=== PATIENT | female | born 1995 | race Caucasian/White ===

== ENCOUNTER 2021-01-22 12:22 | Emergency (ER) | payer SELFPAY ==
[2021-01-22] MEDS ORDERED: diphenhydrAMINE 50 MG/ML SDV IVPUSH ONE (12:37)
[2021-01-22] MEDS ORDERED: Dexamethasone 10 MG/ML SDV IVPUSH ONE (12:37)
[2021-01-22 13:38] LABS: BLOOD UREA NITROGEN,BUN 10 mg/dL (7.0-18.0); CARBON DIOXIDE,CO2 26.7 mmol/L (21.0-32.0); CHLORIDE,CL 103 mmol/L (98-107); GLUCOSE RANDOM 102 mg/dL (74-106); POTASSIUM,K 3.8 mmol/L (3.5-5.1); SODIUM,NA 139 mmol/L (136-145)
--- NOTE | 2021-01-22 13:50 | CT ---
Indication: Sensation of airway impediment Technique: Volumetric multidetector CT images of the cervical soft tissues were obtained after the administration of low osmolar intravenous contrast. 75 cc Isovue 370 low osmolar intravenous contrast Comparison: None available. Findings: The partially visualized brain parenchyma is normal in attenuation without evidence of abnormal enhancement. The orbits and their contents are within normal limits. The paranasal sinuses are clear. The mastoid air cells are clear. The nasopharynx is unremarkable. The fossae of Rosenmuller are clear. The oropharynx is unremarkable. There is demonstration of a moderately bulky lingual tonsil. The deep spaces of the neck are otherwise preserved. The vocal folds are nonthickened with symmetrical appearance. There is a mildly bulky right thyroid lobe. The left thyroid gland is grossly unremarkable. There are reactive appearing cervical lymph nodes seen in the bilateral II cervical chains. The jugular veins are patent. The carotid arteries demonstrate no significant atherosclerotic narrowing. The lung apices are clear. The cervical vertebral body heights are grossly maintained with mild anterolisthesis of C4 on C5. There is mild facet arthrosis. Impression: Demonstration of moderate prominence of the lingual tonsil and likely reactive lymph nodes of the bilateral II cervical chains which may represent reactive lymphoproliferative changes in the setting of upper respiratory infection or pharyngitis changes. Otherwise, no evidence of mass or fluid collection. The airway is grossly patent. Please note that all CT scans at this facility use dose modulation, iterative reconstruction, and/or weight-based dosing when appropriate to reduce radiation dose to as low as reasonably achievable. Dictated by Bladimir Jimenez MD @ 01/22/2021 1:48:48 PM (Electronically Signed)
--- NOTE | 2021-01-22 13:57 | EDM.PDOC ---
ED HPI GENERAL MEDICAL PROBLEM - General Chief Complaint: General Stated Complaint: PT STATES HER THROAT IS CLOSING UP Time Seen by Provider: 01/22/21 12:25 Source of Information: Reports: Patient History Limitations: Reports: No Limitations - History of Present Illness INITIAL COMMENTS - FREE TEXT/NARRATIVE: HISTORY AND PHYSICAL: History of present illness: Patient is a 25-year-old female who presents emergency room today with concern of sensation like she cannot swallow as if there is swelling/impeding of her airway in the middle of her throat. Patient states that she does have a history of angioedema but states that this does not feel typical of her angioedema. Patient states that she did have a recent dental infection that she was placed on clindamycin for but states that the dental infection has nearly completely resolved and states that she has an appointment in a week and a half with a dentist for further addressing of her tooth. Patient states this was on the upper right tooth but states that this is nearly gone now. Patient states that she began developing the sensation of something stuck in the middle of her throat/impeding on her airway yesterday. Patient states that she typically receives Decadron for her history of angioedema patient states that she did take Benadryl today but states that it did not help her symptoms. Patient states that this feels different than her typical angioedema and like she has a "infection of her throat ". Denies any other health history or any other associated symptoms. Patient denies fever, chills, chest pain, shortness of breath, or cough. Denies headache, neck stiff ness, change in vision, syncope, or near syncope. Denies nausea, vomiting, abdominal pain, diarrhea, constipation, or dysuria. Has not n oted any blood in urine or stool. Patient has been eating and drinking appropriately. Review of systems: As per history of present illness and below otherwise all systems reviewed and negative. Past medical history: As per history of present illness and as reviewed below otherwise noncontributory. Surgical history: As per history of present illness and as reviewed below otherwise noncontribu tory. Social history: See social history for further information Family history: As per history of present illness and as reviewed below otherwise noncontributory. Physical exam: General: Patient is alert, oriented, and in no acute distress. Patient sitting comfortably on exam table. Vitals stable and reviewed by me. HEENT: No lip edema, tongue edema, or oropharyngeal edema. No stridor. Atr aumatic, normocephalic, pupils equal and reactive bilaterally, negative for conjunctival pallor or scleral icterus, mucous membranes moist, throat clear, neck supple, nontender, trachea midline. No drooling or trismus noted. No meningeal signs. No hot potato voice noted. Lungs: Clear to auscultation, breath sounds equal bilaterally, chest nontender. Heart: S1S2, regular rate and rhythm without overt murmur Abdomen: Soft, nondistended, nontender. Negative for masses or hepatosplenomegaly. Negative for costovertebral tenderness. Pelvis: Stable nontender. Genitourinary: Deferred. Rectal: Deferred. Skin: Intact, warm, dry. No lesions or rashes noted. Extremities: Atraumatic, negative for cords or calf pain. Neurovascular unremarkable. Neuro: Awake, alert, oriented. Cranial nerves II through XII unremarkable. Cerebellum unremarkable. Motor and sensory unremarkable throughout. Exam nonfocal. Medical Decision Making: Patient is a 25-year-old female with a history of angioedema, who presents emergency room today with concern of dysphagia/sensation of airway impingement or possible infection of her throat since yesterday. Upon arrival to the ED, patient is vitally stable and well-appearing on exam. She does not have any lip edema, tongue edema, oropharyngeal edema, or stridor. Patient is breathing comfortably on exam, is speaking in clear sentences with no hot potato voice, no drooling or trismus and does not postured forward. Patient does not appear to have any physical exam findings concerning for angioedema. However, given her history with prior improvement of symptoms with Decadron, will provide a dose of Benadryl Decadron here in the emergency room. Patient states that this disparate than her typical angioedema and is considered of a deep-seated infection, due to this, will obtain soft tissue neck CT, rule out possible deep- seated abscess. Do not appreciate any dental infections on exam as per her history. CBC mild derangements unremarkable. CMP mild derangements unremarkable. hCG is negative. Soft tissue neck CT does show demonstration of a moderate prominence of the lingula tonsil and likely reactive lymph nodes of the bilateral to cervical chains which may represent reactive lymphoproliferative changes in the setting of upper respiratory infection or pharyngitis changes. Otherwise, no evidence of mass or fluid collection. The airway is grossly patent. Upon reevaluation of patient, she remains vitally stable and comfortable throughout stay in ED. Given that patient does have lymphadenopathy, likely the source of patient's throat sensation/discomfort. She did have a recent dental infection, lymphadenopathy could be reactive due to this. Discussed the importance for close follow-up with her primary care provider for resolution of lymphadenopathy. Strict return precautions thoroughly discussed with patient. Discussed importance of follow-up with a primary care provider. Voices understanding and is agreeable to plan of care. Denies any further questions or concerns at this time. Diagnostics: CBC, CMP, Hcg Serum, Soft tissue neck CT w cont Therapeutics: Decadron, Benadryl Prescription: None Impression: Dysphagia Lymphadenopathy Plan: 1. Follow-up with primary care provider as discussed. Return to the ED as needed and as discussed. Definitive disposition and diagnosis as appropriate pending reevaluation and review of above. Right Pain Score (Numeric/FACES): 8 - Related Data Allergies Allergy/AdvReac Type Severity Reaction Status Date / Time No Known Allergies Allergy Verified 01/22/21 12:35 Home Meds: Home Meds Clindamycin in 0.9 % Sod Chlor [Clindamycin 600 mg/50 ml-Ns] 01/22/21 [History] Past Medical History - Past Health History Medical/Surgical History: Denies Medical/Surgical History - Infectious Disease History Infectious Disease History: Reports: Chicken Pox, Measles Social & Family History - Family History Family Medical History: No Pertinent Family History - Tobacco Use Tobacco Use Status *Q: Never Tobacco User - Caffeine Use Caffeine Use: Reports: Coffee, Soda - Recreational Drug Use Recreational Drug Use: No ED ROS GENERAL - Review of Systems Review Of Systems: Comprehensive ROS is negative, except as noted in HPI. ED EXAM, GENERAL - Physical Exam Exam: See Below (See dictation) Course - Vital Signs Last Recorded V/S: Last Vital Signs Temp 97.4 F 01/22/21 12:37 Pulse 89 01/22/21 12:37 Resp 17 01/22/21 12:37 BP 160/94 H 01/22/21 12:37 Pulse Ox 96 01/22/21 12:37 - Orders/Labs/Meds Labs: Laboratory Tests 12/03/21 12/03/21 12/03/21 Range/Units 12:54 12:54 12:54 WBC 8.97 (4.0-11.0) K/uL RBC 4.82 (4.30-5.90) M/uL Hgb 13.9 (12.0-16.0) g/dL Hct 40.8 (36.0-46.0) % MCV 84.6 (80.0-98.0) fL MCH 28.8 (27.0-32.0) pg MCHC 34.1 (31.0-37.0) g/dL RDW Std Deviation 39.9 (28.0-62.0) fl RDW Coeff of Pat 13 (11.0-15.0) % Plt Count 172 (150-400) K/uL MPV 11.00 (7.40-12.00) fL Neut % (Auto) 68.2 (48.0-80.0) % Lymph % (Auto) 23.4 (16.0-40.0) % Woodruff % (Auto) 5.5 (0.0-15.0) % Eos % (Auto) 2.8 (0.0-7.0) % Baso % (Auto) 0.1 (0.0-1.5) % Neut # (Auto) 6.1 H (1.4-5.7) K/uL Lymph # (Auto) 2.1 (0.6-2.4) K/uL Woodruff # (Auto) 0.5 (0.0-0.8) K/uL Eos # (Auto) 0.3 (0.0-0.7) K/uL Baso # (Auto) 0.0 (0.0-0.1) K/uL Nucleated RBC % 0.0 /100WBC Nucleated RBCs # 0 K/uL Sodium 139 (136-145) mmol/L Potassium 3.8 (3.5-5.1) mmol/L Chloride 103 (98-107) mmol/L Carbon Dioxide 26.7 (21.0-32.0) mmol/L BUN 10 (7.0-18.0) mg/dL Creatinine 0.8 (0.6-1.0) mg/dL Est Cr Clr Drug Dosing 84.28 mL/min Estimated GFR (MDRD) > 60.0 ml/min Glucose 102 (74-106) mg/dL Calcium 8.9 (8.5-10.1) mg/dL Total Bilirubin 0.4 (0.2-1.0) mg/dL AST 13 L (15-37) IU/L ALT 40 (14-63) IU/L Alkaline Phosphatase 78 (46-116) U/L Total Protein 8.0 (6.4-8.2) g/dL Albumin 3.4 (3.4-5.0) g/dL Globulin 4.6 H (2.6-4.0) g/dL Albumin/Globulin Ratio 0.7 L (0.9-1.6) HCG, Qual NEGATIVE (NEG) Meds: Medications Discontinued Medications Generic Name Dose Route Start Last Admin Trade Name Freq PRN Reason Stop Dose Admin Dexamethasone 10 mg 01/22/21 12:37 01/22/21 12:56 Dexamethasone 10 Mg/Ml Sdv IVPUSH 01/22/21 12:38 10 mg ONETIME ONE Administration Diphenhydramine HCl 50 mg 01/22/21 12:37 01/22/21 12:56 Diphenhydramine 50 Mg/Ml Sdv IVPUSH 01/22/21 12:38 50 mg ONETIME ONE Administration Departure - Departure Time of Disposition: 13:56 Disposition: Home, Self-Care 01 Clinical Impression: Dysphagia, Lymphadenopathy - Discharge Information Instructions: Dysphagia Eating Plan, Bite Size Food Referrals: PCP,None [Primary Care Provider] - Forms: ED Department Discharge Additional Instructions: The following information is given to patients seen in the emergency department who are being discharged to home. This information is to outline your options for follow-up care. We provide all patients seen in our emergency department with a follow-up referral. The need for follow-up, as well as the timing and circumstances, are variable depending upon the specifics of your emergency department visit. If you don't have a primary care physician on staff, we will provide you with a referral. We always advise you to contact your personal physician following an emergency department visit to inform them of the circumstance of the visit and for follow-up with them and/or the need for any referrals to a consulting specialist. The emergency department will also refer you to a specialist when appropriate. This referral assures that you have the opportunity for follow-up care with a specialist. All of these measure are taken in an effort to provide you with optimal care, which includes your follow-up. Under all circumstances we always encourage you to contact your private physician who remains a resource for coordinating your care. When calling for follow-up care, please make the office aware that this follow-up is from your recent emergency room visit. If for any reason you are refused follow-up, please contact the [facility] Emergency Department at and asked to speak to the emergency department charge nurse. [facility] [address] [place] [id number] [id number] 1. Follow-up with primary care provider as discussed. Return to the ED as needed and as discussed. Sepsis Event Note (ED) - Evaluation Sepsis Screening Result: No Definite Risk - Focused Exam Vital Signs: Vital Signs Temp Pulse Resp BP Pulse Ox 01/22/21 12:37 97.4 F 89 17 160/94 H 96
[2021-01-22] MEDS ORDERED: Iopamidol 755 MG/ML 500 ML Multipack Bottle IVPUSH ONE (17:03)
== END 2021-01-22 14:10 | disposition home or self-care (01) ==
LOC: MW.ED 12:22
DX: R13.10 Dysphagia, unspecified (principal); R59.0 Localized enlarged lymph nodes
CPT/HCPCS: 36415; 70491; 80053; 84703; 85025; 96374; 96375; 99284; J1100; J1200; Q9967

== ENCOUNTER 2022-01-27 20:55 | Emergency (ER) | payer MEDICAID ==
[2022-01-27] MEDS ORDERED: Sodium Chloride 0.9% 10 ML Syringe FLUSH PRN (21:30)
[2022-01-27] MEDS ORDERED: Sodium Chloride 0.9% 1,000 ML IV ONE (21:30)
[2022-01-27] MEDS ORDERED: Sodium Chloride 0.9% 2.5 ML Syringe FLUSH PRN (21:30)
[2022-01-27 22:12] LABS: CARBON DIOXIDE,CO2 29.2 mmol/L (21.0-32.0); POTASSIUM,K 3.9 mmol/L (3.5-5.1)
[2022-01-27 22:31] LABS: CORONAVIRUS COVID-19 NAA POSITIVE (NEGATIVE); INFLUENZA A NAA NEGATIVE (NEGATIVE); INFLUENZA B NAA NEGATIVE (NEGATIVE); RESPIRATORY SYNCYTIAL VIR NAA NEGATIVE (NEGATIVE)
[2022-01-27] MEDS ORDERED: Ketorolac 30 MG/ML SDV IVPUSH ONE (23:00)
[2022-01-27] MEDS ORDERED: Orphenadrine 60 MG/2 ML Inj IV ONE (23:00)
== END 2022-01-27 23:19 | disposition home or self-care (01) ==
LOC: MW.ED 20:55
DX: U07.1 COVID-19 (principal); M54.2 Cervicalgia; R07.81 Pleurodynia; Z88.8 Allergy status to other drugs, medicaments and biological substances
CPT/HCPCS: 0241U; 36415; 71046; 80053; 81001; 84484; 84703; 85025; 85379; 87086; 93005; 96361; 96374; 96375; 99284; J1885; J2360; J3490; J7030